=== PATIENT | male | born 1960 | race Caucasian/White ===

== ENCOUNTER 2018-04-18 14:36 | Day surgery (SDC) | payer BC ==
[~2018-04-18] VITALS: Ht 177.8 cm; Wt 81.8 kg
[2018-04-18 11:57] VITALS: BP 116/77; PULSE 57
[2018-04-18 14:58] VITALS: BP 139/93; PULSE 66; TEMP 98.1
[2018-04-18] MEDS ORDERED: CYANOCOBAL1000 MCG/1 IM (15:27)
[2018-04-18] MEDS ORDERED: TOPROL XL 50MG50 MG PO (15:28)
[2018-04-18] MEDS ORDERED: IMURAN 50MG TAB50 MG PO (15:29)
[2018-04-18] MEDS ORDERED: CEPHALEXIN500 M1 PO (16:07)
[2018-04-18] MEDS ORDERED: NORCO 325 MG-7.1 TAB PO (16:08)
[2018-04-18 16:12] VITALS: BP 127/88; PULSE 54
[2018-04-18 16:27] VITALS: BP 143/84; PULSE 57
== END 2018-04-18 16:30 | disposition home or self-care (01) ==
LOC: SDCO 14:36
DX: S69.91XA Unspecified injury of right wrist, hand and finger(s), initial encounter (principal); Z90.49 Acquired absence of other specified parts of digestive tract; I10 Essential (primary) hypertension; Z88.1 Allergy status to other antibiotic agents; Z88.8 Allergy status to other drugs, medicaments and biological substances
CPT/HCPCS: J0690; J2704; J2795; J3010; J7120